=== PATIENT | female | born 2000 | race African-American/Black ===

== ENCOUNTER 2020-07-12 12:14 | Emergency (ER) | payer SELFPAY ==
[~2020-07-12] VITALS: Ht 162.6 cm; Wt 63.0 kg
[2020-07-12] MEDS ORDERED: IBUPROFEN 600MG TABLET PO ONE (16:00)
[2020-07-12] MEDS ORDERED: BACITRACIN ZINC OINT UDPKT TOP ONE (17:45)
[2020-07-12] MEDS ORDERED: IBUP-2029 MT (17:53)
[2020-07-12 18:07] VITALS: BP 142/79
== END 2020-07-12 18:10 | disposition home or self-care (01) ==
LOC: ER 12:14
DX: S80.211A Abrasion, right knee, initial encounter (principal); W17.89XA Other fall from one level to another, initial encounter; Y93.89 Activity, other specified; Y92.812 Truck as the place of occurrence of the external cause
CPT/HCPCS: 73562; 99283